=== PATIENT | female | born 1995 | race Caucasian/White ===

== ENCOUNTER 2024-04-21 14:32 | Emergency (ER) | payer MEDICAID, SELFPAY ==
--- OUTSIDE RECORDS SUMMARY | 2024-04-21 14:35 | XMS_ITS | Clinical Summary ---
Author Organization [facility] Address [place], [place] [address] Care Team Providers Care Firer Portable Boiler Name Role Phone Elva Rojo Primary Care Provider Rick Moya MD Unavailable [phone]- [phone] Allergies No known active allergies Medications clotrimazole (LOTRIMIN) 1 % creamIndication s:Rash Apply topically to affected area(s) 2 times daily if needed. 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 Encounters Date Type Department Care Team Description 04/21/2024 Telephone [facility] [address] [place] [address] Rick Moya MD Concerns 04/11/2024 3:35 PM LIFT SLAB OPERATOR Ancillary Procedure [facility] [address] [place] [address] 04/11/2024 3:30 PM LIFT SLAB OPERATOR Office Visit [facility] [address] [place] [address] Jessie Qiu PA Foot Injury (lt foot ) 04/11/2024 Travel from Last 3 Months Immunizations Name Administration Dates Next Due DTaP 08/20/2006, 7,10/16/1997,01/20,1996 HIB PRP-T (ActHIB,Hiberix) 07/15/1997,,1996,08/20 Hepatitis A (Adult) 08/16/2015 Hepatitis B (Peds) 10/16/1997,1996, 997 Inactivated Polio Vaccine 07/15/1997,,1996,08/20 MENINGOCOCCAL VACCINE 2 VIAL [id number] (MENVEO) 08/16/2015 MMR 10/16/1997,07/15/1997 Tdap 07/21/2020 Yellow Fever 08/25/2015 Family History Medical History Relation Name Comments Throat cancer Father Stroke Paternal Grandmother Relation Name Status Comments Father Paternal Grandmother Social History Tobacco Use Types Packs/Day Years Used Date Smoking Tobacco: Never Smokeless Tobacco: Never Tobacco Cessation:Counseling Given: Yes Comments:non smoking home Alcohol Use Standard Drinks/Week Comments No 0 (1 standard drink = 0.6 oz pur e alcohol) PHQ-2 Answer Date Recorded PHQ-2 TOTAL SCORE 0 11/02/2021 Social Connections Answer Date Recorded Do you often feel lonely or isolated from those around you? 0 05/03/2023 Financial Resource Strain Answer Date R ecorded Difficulty of Paying Living Expenses 3 05/03/2023 Difficulty of Paying Living Expenses Not on file 05/03/2023 Food Insecurity Answer Date Recorded Do you worry your food will run out before you are able to buy more? 1 05/03/2023 Transportation Needs Answer Date Record ed Does lack of transportation keep you from medica l appointments? 1 05/03/2023 Does lack of transportation keep you from work, meetings or getting things that you need? 1 05/03/2023 Housing Stability Answer Date Recorded What is your housing situation today? 1 05/03/2023 Utilities Answer Date Recorded Do you have trouble paying f or utilities (for example, heat, electricity, water, phone)? 1 05/03/2023 Comments No Sex and Gender Information Value Date Recorded Sex Assigned at Not on file Legal Sex Female 8:27 AM LIFT SLAB OPERATOR Gender Identity Not on file Sexual Orientation Not on file Travel History Travel Start Travel End [place] 03/19/2024 03/25/2024 Obstetrics History Last Filed Vital Signs Vital Sign Reading Time Taken Comments Blood Pressure 120/74 04/11/2024 3:23 PM LIFT SLAB OPERATOR Pulse 80 04/11/2024 3:23 PM LIFT SLAB OPERATOR Temperature 36.9 C (98.5 F) 05/03/2023 11:40 AM LIFT SLAB OPERATOR Respiratory Rate 16 04/11/2024 3:23 PM LIFT SLAB OPERATOR Oxygen Saturation 100% 04/11/2024 3:23 PM LIFT SLAB OPERATOR Inhaled Oxygen Concentration - - Weight 54.8 kg (120 lb 12.8 oz) 04/11/2024 3:23 PM LIFT SLAB OPERATOR Height 170.5 cm (5' 7.13) 04/11/2024 3:23 PM CS T Body Mass Index 18.85 04/11/2024 3:23 PM LIFT SLAB OPERATOR Plan of Treatment Health Maintenance Due Date Last Done Comments HIV for age 15-65 06/20/2011 Pneumococcal series for age 6-49 (1 of 2 - PCV) 06/20/2015 Pap test for age 21-65 2017 Depression screening for age 12+ 11/02/2022 11/03/19, 07/21/2020 COVID-19 vaccine series ( - season) 2023 Influenza for age 9-49 11/25/2023 BMI (ht and wt on same day) for age 18+ 04/11/2025 04/11/2024, 11/06/2023, 05/03/2023, Additional history exists Tetanus booster 07/21/2030 07/21/2020 Tdap Completed 07/21/2020, 07/25 (Completed outside of [facility]) Hepatitis C screening for ag e 18-79 Completed 12/09/2021 Procedures Procedure Name Priority Date/Time Associated Diagnosis Comments XR TOES 3 VIEWS LEFT Routine 04/11/2024 3:46 PM LIFT SLAB OPERATOR Injury of toe on left foot, initial encounter ANTI HCV Routine 12/09/2021 2:23 PM CDT Need for hepatitis C screening test from Last 3 Months or Most Recently Relevant to Health Maintenance Results * XR TOES 3 VIEWS LEFT (04/11/2024 3:46 PM LIFT SLAB OPERATOR) Anatomical Region Laterality Modality TOES Computed Radiogr aphy 04/11/2024 4:08 PM LIFT SLAB OPERATOR Impressions 04/11/2024 4:08 PM LIFT SLAB OPERATOR There is a mildly displaced obliquely oriented fracture of the left 3rd toe middle phalanx with partial callus formation. No joint space involvement. Remainder normal. Dictated by Tomy Polo MD @ 04/11/2024 4:08:38 PM (Electronically Signed) Narrative 04/11/2024 4:08 PM LIFT SLAB OPERATOR For Patients: As a result of the Cures Act, medical imaging exams and procedure reports are released immediately into your electronic medical record. You may view this report before your referring provider. If you have questions, please contact your health care provider. Indication: Injury, pain Technique: Three views left 3rd toe Procedure Note Tomy Polo MD - 04/11/2024 For Patients: As a result of the Cures Act, medical imagingexams and procedure reports are released immediately into your electronicmedical record. You may view this report before your referring provider.If you have questions, please contact your health care provider. Indication: Injury, pain Technique: Three views left 3rd toe IMPRESSION: There is a mildly displaced obliquely oriented fracture of the left 3rdtoe middle phalanx with partial callus formation. No joint spaceinvolvement. Remainder normal. Dictated by Tomy Polo MD @ 04/11/2024 4:08:38 PM (Electronically Signed) [facility] Final Result * ANTI HCV (12/09/2021 2:23 PM CDT) HEPATITIS C ANTIBODY Non-React shaye Non-React shaye 12/10/2021 7:06 PM CDT [facility] Comment:Antibodies to HCV no t detected; does not exclude the possibility of exposure to HCV. Blood BLOOD SPECIMEN / Unknown Venipuncture / Unknown 12/09/2021 2:23 PM CDT 12/09/2021 2:23 PM CDT us Elva Rojo DO SEND OUTS Final Resul t [facility] [address] [place] [address], [place] from Last 3 Months or Most Recently Relevant to Health Maintenance Insurance [facility] COMM[facility]CIAL Care Teams Firer Portable Boiler Relationship Specialty [place] [address] [address] [place] [address] PCP - General Family Practice 07/30/20 Rick Moya MD [address] [facility] [address] [place] [address] Adult Congenital Heart Disease Program Cardiovascular Disease 10/12/21
[2024-04-21 14:46] VITALS: BP 125/81; PULSE 95; RESP 18; TEMP 36.8; O2SAT 99; BMI 19.6
--- NOTE | 2024-04-21 17:01 | ED_ITS ---
HPI - General Adult General Chief complaint: Back Injury/Pain Stated complaint: Chest pain, upper back pain Time Seen by Provider: 04/21/24 15:24 History of Present Illness HPI narrative: This 28-year-old female comes in reporting left upper anterior chest discomfort that is also experienced in her back in the same area. She states that she woke with this pain a couple days ago. It was clearly worse with taking a breath at that time and now she states that it is feeling better but yet reproducible with a deep breath. She does not report any recent injury event or strenuous activity. She does have a pulmonary valve disorder and sees a welfare worker. A welfare worker was contacted and thought that it sounded like chest wall pain but she comes in for evaluation. She denies having any nausea, vomiting, lightheadedness, shortness of breath, diaphoresis, or exercise intolerance. She arrives here with normal vital signs. Related Data Home Medications ?Medication ?Instructions ?Recorded ?Confirmed No Known Home Medications 04/21/24 04/21/24 Allergies Allergy/AdvReac Type Severity Reaction Status Date / Time No Known Drug Allergies Allergy Verified 04/21/24 14:52 Review of Systems Status of ROS: Reports: 10 or more systems reviewed and unremarkable except as noted in History and below Narrative: Constitutional: No fevers, no weight gain or loss. Eyes: No discharge. No vision changes. HENT: No congestion, no sore throat, no ear pain. Cardiovascular: No palpitations. Respiratory: No shortness of breath, no wheezes, no cough. Gastrointestinal: No abdominal pain, no vomiting, no diarrhea. Genitourinary: No dysuria, no hematuria. Musculoskeletal: Normal range of motion. Skin: No rashes, no pruritis. Neurological: No dizziness, weakness, sensory change, speech change. Endo/Heme/Allergies: No bruising or bleeding. No polydipsia. Pysch: no suicidality, no anxiety, no insomnia. All other systems reviewed and are negative. Exam Narrative: Exam Narrative: Constitutional: Well-developed, well-nourished, no acute distress. HEENT: Normocephalic, atraumatic. Neck: Normal range of motion. Nontender. Supple. Heart: Regular. No murmurs. Normal rate. Intact distal pulses. Lungs: Clear to auscultation. No wheezes, rhonchi, or rales. Abdomen: Normal bowel sounds. Nontender. No rebound tenderness. Genitalia: Deferred. Back: No midline tenderness. Normal range of motion. Extremities: Normal range of motion. No injury. Skin: Intact. No rash. Warm. No erythema or pallor. Neurologic: No altered sensation. No weakness. Alert and oriented. Psychiatric: No suicidality. No anxiety or depression. No insomnia. Nursing notes and vitals signs are reviewed. Const: Vital Signs, click to edit/add: Vital Signs - 24 hr 04/21/24 14:46 Temperature 98.2 F Pulse Rate [Pulse Oximeter] 95 Respiratory Rate 18 [facility]81 Pulse Oximetry 99 Oxygen Delivery Me thod Room Air Course Vital Signs Vital signs: Initial Vital Signs Temperature 98.2 F 04/21/24 14:46 Temperature Source Temporal Artery Scan 04/21/24 14:46 Pulse Rate 95 04/21/24 14:46 Respiratory Rate 18 04/21/24 14:46 Blood Pressure 125/81 04/21/24 14:46 Blood Pressure Mean 95 04/21/24 14:46 Blood Pressure Position Sitting 04/21/24 14:46 Pulse Oximetry 99 04/21/24 14:46 Oxygen Delivery Method Room Air 04/21/24 14:46 Vital Signs Temperature 98.2 F 04/21/24 14:46 Pulse Rate 95 04/21/24 14:46 Respiratory Rate 18 04/21/24 14:46 Blood Pressure 125/81 04/21/24 14:46 Pulse Oximetry 99 04/21/24 14:46 Oxygen Delivery Method Room Air 04/21/24 14:46 Temperature 98.2 F 04/21/24 14:46 Pulse Rate 95 04/21/24 14:46 Respiratory Rate 18 04/21/24 14:46 Blood Pressure 125/81 04/21/24 14:46 Pulse Oximetry 99 04/21/24 14:46 Oxygen Delivery Method Room Air 04/21/24 14:46 Medical Decision Making MDM Narrative Medical decision making narrative: This patient comes in with reproducible chest discomfort when taking a deep breath. She initially was saying that she did not have any injury event but after thinking about it she did move some objects and may have strained her muscles causing this discomfort. I did use bedside ultrasound for some screening looks at her heart and lungs with normal findings. This was reassuring to her. She is okay to be discharged home and encouraged to use Tylenol and ibuprofen as needed and directed. Discharge Plan Discharge Clinical Impression: Acute chest wall pain Patient Disposition: Home, Self-Care Condition: Stable Additional Instructions: Use [id number] medicines as needed and directed. Increase activity as to lerated. Follow up with MD return if worsening. Prescriptions: No Action No Known Home Medications Stand Alone Forms: [employer] Info Instructions Procedures Ultrasound Cardiac exam #1: Anatomical areas examined: parasternal long and parasternal short Indications: chest pain Exam type: limited transthoracic echocardiogram Impression: negative exam
[2024-04-21 17:26] VITALS: BP 125/80; PULSE 77; RESP 18; TEMP 37.2; O2SAT 98
--- OUTSIDE RECORDS SUMMARY | 2024-04-21 17:30 | XMS_ITS | Clinical Summary ---
Author Organization [facility] Address [place], [place] [address] Care Team Providers Care Instructor Knitting Name Role Phone Elva Rojo Primary Care Provider Rick Moya MD Unavailable +1- [phone] Allergies No known active allergies Medications clotrimazole [...] Type Department Care Team Description 04/21/2024 Telephone [facility] [address] [place] [address] Rick Moya MD Concerns 04/11/2024 3:35 PM CLERK SUPERVISOR Ancillary Procedure [facility] [address] [place] [address] 04/11/2024 3:30 PM CLERK SUPERVISOR Office Visit [facility] [address] [place] [address] Jessie Qiu PA Foot Injury (lt foot [...] on file Legal Sex Female 8:27 AM CLERK SUPERVISOR Gender Identity Not on file Sexual Orientation Not on file Travel History Travel Start Travel End [place] 03/19/2024 03/25/2024 Obstetrics History Last Filed Vital Signs Vital Sign Reading Time Taken Comments Blood Pressure 120/74 04/11/2024 3:23 PM CLERK SUPERVISOR Pulse 80 04/11/2024 3:23 PM CLERK SUPERVISOR Temperature 36.9 C (98.5 F) 05/03/2023 11:40 AM CLERK SUPERVISOR Respiratory Rate 16 04/11/2024 3:23 PM CLERK SUPERVISOR Oxygen Saturation 100% 04/11/2024 3:23 PM CLERK SUPERVISOR Inhaled Oxygen Concentration - - Weight 54.8 kg (120 lb 12.8 oz) 04/11/2024 3:23 PM CLERK SUPERVISOR Height 170.5 cm (5' 7.13) 04/11/2024 3:23 PM CS T Body Mass Index 18.85 04/11/2024 3:23 PM CLERK SUPERVISOR Plan of Treatment Health Maintenance Due Date [...] Tdap Completed 07/21/2020, 07/25 (Completed outside of [facility]) Hepatitis C screening for ag e 18-79 Completed 12/09/2021 Procedures Procedure Name Priority Date/Time Associated Diagnosis Comments XR TOES 3 VIEWS LEFT Routine 04/11/2024 3:46 PM CLERK SUPERVISOR Injury of toe on left foot, initial encounter ANTI HCV Routine 12/09/2021 2:23 PM CDT Need for hepatitis C screening test from Last 3 Months or Most Recently Relevant to Health Maintenance Results * XR TOES 3 VIEWS LEFT (04/11/2024 3:46 PM CLERK SUPERVISOR) Anatomical Region Laterality Modality TOES Computed Radiogr aphy 04/11/2024 4:08 PM CLERK SUPERVISOR Impressions 04/11/2024 4:08 PM CLERK SUPERVISOR There is a mildly displaced obliquely oriented fracture of the left 3rd toe middle phalanx with partial callus formation. No joint space involvement. Remainder normal. Dictated by Tomy Polo MD @ 04/11/2024 4:08:38 PM (Electronically Signed) Narrative 04/11/2024 4:08 PM CLERK SUPERVISOR For Patients: As a result of the [...] shaye Non-React shaye 12/10/2021 7:06 PM CDT [facility] Comment:Antibodies to HCV no t detected; does not exclude the possibility of exposure to HCV. Blood BLOOD SPECIMEN / Unknown Venipuncture / Unknown 12/09/2021 2:23 PM CDT 12/09/2021 2:23 PM CDT us Elva Rojo DO SEND OUTS Final Resul t [facility] [address] [place] [address], [place] from Last 3 Months or Most Recently Relevant to Health Maintenance Insurance [facility] COMM[facility]CIAL Care Teams Instructor Knitting Relationship Specialty [place] [address] [place] [address] PCP - General Family Practice 07/30/20 Rick Moya MD [address] [facility] [address] [place] [address] Adult Congenital Heart Disease Program Cardiovascular Disease 10/12/21
== END 2024-04-21 17:35 | disposition home or self-care (01) ==
LOC: ED 17:28
PROVIDERS: Emergency Provider Emergency Medicine Emergency Medical Services
DX: R07.89 Other chest pain (principal)
CPT/HCPCS: 76604; 76705; 93308; 99284